=== PATIENT | female | born 1960 | race American Indian/Alaskan Native ===

== ENCOUNTER 2020-03-03 23:12 | Observation (INO) | payer MEDICAID ==
--- NOTE | 2020-03-03 23:37 | Emergency Department Report ---
ED General Adult HPI - General Chief complaint: Weakness Stated complaint: MISSED DIALYSIS Time Seen by Provider: 03/03/20 23:28 Source: patient, EMS Mode of arrival: Stretcher Limitations: Physical Limitation - History of Present Illness Initial comments: Mrs. Zhu is a 60 yo female with hx of ESRD on HD MWF, hypertension, atrial fibrillation who presents with generalized malaise and body swelling. She missed two sessions of dialysis Thursday and Thursday. On Thursday she had generalized malaise. On Thursday she was unable to get transportation to hemodialysis. She has mild shortness of breath. Hotel Office Manager Dr. Galicia Patient has never been admitted to this hospital. Several hospitals are on diversion. Consequently, patient was transported to [facility] from [place], [place]. Medication: Alprazolam Midodrine Metoprolol -: Gradual, days(s) (4) Location: left, right, upper extremity, lower extremity Quality: aching Consistency: constant Improves with: none Worsens with: none Associated Symptoms: shortness of breath - Related Data Allergies Allergy/AdvReac Type Severity Reaction Status Date / Time Penicillins Allergy Hives Verified 03/04/20 00:58 ED Review of Systems ROS: Stated complaint: MISSED DIALYSIS Other details as noted in HPI Comment: All other systems reviewed and negative Constitutional: malaise. denies: chills, fever Eyes: denies: eye pain, eye discharge, vision change ENT: denies: ear pain, throat pain Respiratory: shortness of breath. denies: cough, wheezing Cardiovascular: denies: chest pain, palpitations Endocrine: no symptoms reported Gastrointestinal: denies: abdominal pain, nausea, diarrhea Genitourinary: denies: urgency, dysuria, discharge Musculoskeletal: denies: back pain, joint swelling, arthralgia Skin: denies: rash, lesions Neurological: denies: headache, weakness, paresthesias Psychiatric: denies: anxiety, depression ED Past Medical Hx - Past Medical History Hx Hypertension: Yes Hx Renal Disease: Yes - Surgical History Past Surgical History?: Yes Additional Surgical History: Left forearm arteriovenous fistula ED Physical Exam - General Limitations: Physical Limitation General appearance: alert, in distress (Mild work of breathing while sitting up at rest) - Head Head exam: Present: atraumatic, normocephalic - Eye Eye exam: Present: scleral icterus. Absent: conjunctival injection - ENT ENT exam: Present: mucous membranes moist - Neck Neck exam: Present: normal inspection - Respiratory Respiratory exam: Present: respiratory distress (Increased respiratory rate, breathless after speaking a few words), decreased breath sounds - Cardiovascular Cardiovascular Exam: Present: regular rate, normal rhythm, normal heart sounds. Absent: rubs, gallop - GI/Abdominal GI/Abdominal exam: Present: soft. Absent: distended, tenderness, guarding, rebound - Extremities Exam Extremities exam: Present: other (Lower extremity pitting edema) - Neurological Exam Neurological exam: Present: alert, oriented X3 - Psychiatric Psychiatric exam: Present: normal affect, normal mood - Skin Skin exam: Present: warm, dry, intact, normal color, other (Left forearm: AV fistula positive thrill positive bruit). Absent: rash ED Course Vital Signs 03/03/20 23:27 Temperature 98 F Pulse Rate 92 H Respiratory 18 Rate Blood Pressure 109/64 [Left] O2 Sat by Pulse 98 Oximetry ED Medical Decision Making - Lab Data Result diagrams: 03/03/20 23:46 03/03/20 23:46 - EKG Data 03/04/20 00:11 EKG obtained 2339 Normal sinus rhythm rate 90 bpm abnormal axis widened QRS increased amplitude T waves prolonged QTC no ST elevation - Radiology Data Radiology results: report reviewed CHEST 1 VIEW 11:34 PM INDICATION / CLINICAL INFORMATION: Dyspnea. COMPARISON: None available. FINDINGS: SUPPORT DEVICES: None. HEART / MEDIASTINUM: There is probable dextrocardia. The aortic arch is on the left. LUNGS / PLEURA: There is minimal right basilar subsegmental atelectasis. The left lung is clear. No pneumothorax. ADDITIONAL FINDINGS: Evaluation of the upper abdomen for location of the stomach bubble and liver is the colon. IMPRESSION: Dextrocardia with a left aortic arch. - Medical Decision Making Mrs. Zhu presents with uremic symptoms: volume overload, myalgia, hyperkalemia, respiratoiry distress, elevated BUN/Cr Dr. Coffman trip motor operator will consult and arrange urgent dialysis in AM admitted to [facility] service telemetry Critical care attestation.: If time is entered above; I have spent that time in minutes in the direct care of this critically ill patient, excluding procedure time. ED Disposition Clinical Impression: Hypervolemia, Hyperkalemia, Uremic syndrome, End-stage renal disease on hemodialysis Disposition: DC-09 OP ADMIT IP TO THIS HOSP Is pt being admited?: Yes Does the pt Need Aspirin: No Condition: Stable
[2020-03-04 00:08] LABS: Basophils # (Auto) 0.1 K/mm3 (0.0-0.1); Basophils % (Auto) 1.4 % (0.0-1.8); Eosinophils # (Auto) 0.2 K/mm3 (0.0-0.4); Eosinophils % (Auto) 5.6 % (0.0-4.3); Hematocrit 36.4 % (30.3-42.9); Hemoglobin 11.9 gm/dl (10.1-14.3); Lymphocytes # (Auto) 0.8 K/mm3 (1.2-5.4); Lymphocytes % (Auto) 22.7 % (13.4-35.0); Mean Corpuscular HGB Conc 33 % (30-34); Mean Corpuscular Volume 88 fl (79-97); Monocytes # (Auto) 0.5 K/mm3 (0.0-0.8); Monocytes % (Auto) 15.3 % (0.0-7.3); Red Blood Count 4.12 M/mm3 (3.65-5.03); Red Cell Distribution Width 15.9 % (13.2-15.2)
[2020-03-04 00:09] LABS: Platelet Count 73 K/mm3 (140-440)
[2020-03-04 00:16] LABS: Calcium 8.6 mg/dL (8.4-10.2)
--- NOTE | 2020-03-04 00:19 | XRay Report ---
CHEST 1 VIEW 11:34 PM INDICATION / CLINICAL INFORMATION: Dyspnea. COMPARISON: None available. FINDINGS: SUPPORT DEVICES: None. HEART / MEDIASTINUM: There is probable dextrocardia. The aortic arch is on the left. LUNGS / PLEURA: There is minimal right basilar subsegmental atelectasis. The left lung is clear. No p neumothorax. ADDITIONAL FINDINGS: Evaluation of the upper abdomen for location of the stomach bubble and liver is the colon. IMPRESSION: Dextrocardia with a left aortic arch. Signer Name: Luis Enrique Mcgovern MD Signed: 03/04/2020 12:15 AM Workstation Name: [id number][id number]
[2020-03-04] MEDS ORDERED: oxyCODONE /ACETAMINOPHEN 5-325MG TAB PO ONE (00:33)
[2020-03-04] MEDS ORDERED: oxyCODONE /ACETAMINOPHEN 5-325MG TAB ONE (00:37)
[2020-03-04] MEDS ORDERED: SODIUM POLYSTYRENE 15 GM/60 ML ORAL LIQD PO ONE (00:43)
[2020-03-04] MEDS ORDERED: SODIUM BICARB 8.4% 50 MEQ/50 ML SYRINGE IV ONE (00:43)
[2020-03-04] MEDS ORDERED: SODIUM CHLORIDE 0.9% 100 ML IV PRN ×2 (01:42→11:31)
[2020-03-04] MEDS ORDERED: MAGNESIUM HYDROXIDE (MOM) ORAL LIQD UDC PO PRN (02:49)
[2020-03-04] MEDS ORDERED: ACETAMINOPHEN 325 MG TAB PO PRN (02:49)
[2020-03-04] MEDS ORDERED: ONDANSETRON 4 MG/2 ML INJ IV PRN (02:49)
--- NOTE | 2020-03-04 02:56 | History and Physical Report ---
History of Present Illness Date of examination: 03/04/20 Date of admission: 03/04/2020 Chief complaint: Shortness of breath History of present illness: 60-year-old female with known history of end-stage renal disease on dialysis on Mondays, Wednesdays and Fridays, history of hypertension, atrial fibrillation, presenting to the emergency room today complaining of generalized malaise. She also indicates he has been having progressive swelling of her lower extremities. She admits that she has missed her dialysis on Thursday and Thursday due to generalized malaise and transportation issues. Patient has been having some shortness of breath. She denies any chest pain, no fever or chills, no nausea vomiting, no diarrhea, no headache or dizziness. She denies any recent travel and no sick contacts. She was brought into the [facility] today because several hospitals were on diversion. She has never been admitted into this facility. Work-up in the emergency room reveals hyperkalemia of 5.4. Foreclosure Paralegal Dr. Ceron has been notified by the ER physician for possible dialysis. Past History Past Medical History: ESRD (On dialysis -Mondays, Wednesdays and Fridays), hypertension Past Surgical History: Other (Left AV fistula placement) Social history: no significant social history Family history: no significant family history Medications and Allergies Allergies Allergy/AdvReac Type Severity Reaction Status Date / Time Penicillins Allergy Hives Verified 03/04/20 00:58 Home Medications Medication Instructions Recorded Confirmed Last Taken Type Metoprolol Tartrate 12.5 mg PO BID 03/04/20 03/04/20 Unknown History Midodrine 5 mg PO TID 03/04/20 03/04/20 Unknown History Renvela 1 tab PO TIDAC 03/04/20 03/04/20 Unknown History Xanax TAB 0.5 mg PO BID PRN 03/04/20 03/04/20 Unknown History Active Meds: Active Medications Acetaminophen (Tylenol) 650 mg PO Q4H PRN PRN Reason: Pain MILD(1-3)/Fever >100.5/SOLER Heparin Sodium (Porcine) (Heparin) 5,000 unit SUB-Q Q8HR SUDEEP Sodium Chloride (Nacl 0.9%) 100 mls @ 999 mls/hr IV REID PRN PRN Reason: Hypotension Magnesium Hydroxide (Milk Of Magnesia) 30 ml PO Q4H PRN PRN Reason: Constipation Morphine Sulfate (Morphine) 2 mg IV Q4H PRN PRN Reason: Pain, Moderate (4-6) Ondansetron HCl (Zofran) 4 mg IV Q8H PRN PRN Reason: Nausea And Vomiting Sodium Chloride (Sodium Chloride Flush Syringe 10 Ml) 10 ml IV BID SUDEEP Sodium Chloride (Sodium Chloride Flush Syringe 10 Ml) 10 ml IV PRN PRN PRN Reason: LINE FLUSH Review of Systems Constitutional: no fever, no chills Ears, nose, mouth and throat: no nasal congestion, no sore throat Cardiovascular: no chest pain, no palpitations Respiratory: shortness of breath, no cough Gastrointestinal: no abdominal pain, no nausea, no vomiting, no diarrhea Genitourinary Female: no pelvic pain, no flank pain, no dysuria Musculoskeletal: no neck pain, no low back pain Integumentary: no rash, no pruritis Neurological: no headaches, no confusion Psychiatric: no anxiety, no depression Exam - Constitutional Vitals: Temp Pulse Resp BP Pulse Ox 98 F 80 15 110/63 97 03/03/20 23:27 03/04/20 02:48 03/04/20 02:48 03/04/20 02:48 03/04/20 02:48 General appearance: Present: no acute distress, well-nourished - EENT Eyes: Present: PERRL, EOM intact. Absent: scleral icterus ENT: hearing intact, clear oral mucosa, dentition normal - Neck Neck: Present: supple, normal ROM - Respiratory Respiratory effort: normal Respiratory: bilateral: CTA - Cardiovascular Rhythm: regular Heart Sounds: Present: S1 & S2, systolic murmur. Absent: gallop, rub - Extremities Extremities: no ischemia, pulses intact, pulses symmetrical, Full ROM Extremity abnormal: edema (1+ bilateral lower extremity edema) Peripheral Pulses: within normal limits - Abdominal General gastrointestinal: Present: soft, non-tender, distended, normal bowel sounds. Absent: mass - Integumentary Integumentary: Present: clear, warm, dry - Musculoskeletal Musculoskeletal: strength equal bilaterally - Psychiatric Psychiatric: appropriate mood/affect, intact judgment & insight, memory intact, cooperative - Neurologic Neurologic: CNII-XII intact, no focal deficits, moves all extremities Results - Labs CBC & Chem 7: 03/03/20 23:46 03/03/20 23:46 Labs: Abnormal lab results 03/03/20 03/03/20 Range/Units 23:46 23:46 WBC 3.5 L (4.5-11.0) K/mm3 RDW 15.9 H (13.2-15.2) % Plt Count 73 L (140-440) K/mm3 [place] % (Auto) 15.3 H (0.0-7.3) % Eos % (Auto) 5.6 H (0.0-4.3) % Lymph # 0.8 L (1.2-5.4) K/mm3 Potassium 5.4 H (3.6-5.0) mmol/L Chloride 97.0 L (98-107) mmol/L Carbon Dioxide 21 L (22-30) mmol/L BUN 90 H (7-17) mg/dL Creatinine 10.8 H (0.7-1.2) mg/dL Glucose 102 H (65-100) mg/dL Assessment and Plan - Patient Problems (1) End-stage renal disease on hemodialysis Current Visit: Yes Status: Acute Plan to address problem: Consult has been placed to the radio interference trouble shooter for possible dialysis this a.m. Dr. Ceron has been notified by the ER physician. Patient has a private radio interference trouble shooter Dr. Lazaro. (2) Hyperkalemia Current Visit: Yes Status: Acute Plan to address problem: He has had some Kayexalate in the emergency room. Will monitor potassium levels. (3) DVT prophylaxis Current Visit: Yes Status: Acute Plan to address problem: Patient placed on subcutaneous heparin. (4) Full code status Current Visit: Yes Status: Acute
[2020-03-04] MEDS: HEPARIN 5,000 UNIT/1 ML VIAL SUB-Q SCH ×4 (06:41→22:05)
[2020-03-04] MEDS ORDERED: ALPRAZolam 0.5 MG TAB PO PRN (06:58)
--- NOTE | 2020-03-04 09:50 | Event Note ---
Date: 03/04/20 Patient seen and examined This is the second IMS visit of the day Patient is alert and oriented Not in any distress States her last hemodialysis was on Thursday Also she states that she is nonambulatory for the past 6 months since she had surgery on her right femur She is requesting physical therapy evaluation She has history of atrial fibrillation but was taken off oral anticoagulant earlier this year after being treated for 2 to 3 months She cannot give any further details Awaiting nephrology evaluation for possible hemodialysis today She is otherwise medically stable Monitor labs
[2020-03-04] MEDS: SEVELAMER CARBONATE 800 MG TAB PO SCH ×3 (10:00→17:01)
[2020-03-04] MEDS: METOPROLOL TARTRATE 25 MG TAB PO SCH ×2 (10:00→21:53)
[2020-03-04] MEDS: MIDODRINE 5 MG TAB PO SCH ×3 (10:00→21:30)
[2020-03-04] MEDS ORDERED: diphenhydrAMINE 50 MG/ML VIAL IV PRN (11:31)
--- NOTE | 2020-03-04 12:41 | Consultation ---
History of Present Illness - Reason for Consult Consult date: 03/04/20 end stage renal disease, hyperkalemia Requesting physician: DANIELITO SANTOS - History of Present Illness This is a 60 yo AAF with past medical history of hypertension, atrial fibrillation, ESRD on MWF schedule, who presents to ER with complaints for generalized malaise, weakness, swelling, OH. Pt states that she missed HD since last treatment on Thursday due to transport issues. Labs in ER showed elevated BUN/cr at 90/10.8mg/dl along with hyperkalemia (K 5,4), renal consult is requested for management of ESRD/HD. Past History Past Medical History: ESRD (On dialysis -Mondays, Wednesdays and Fridays), hypertension Past Surgical History: Other (Left AV fistula placement) Social history: no significant social history Family history: no significant family history Medications and Allergies Allergies Allergy/AdvReac Type Severity Reaction Status Date / Time Penicillins Allergy Hives Verified 03/04/20 00:58 Home Medications Medication Instructions Recorded Confirmed Last Taken Type Metoprolol Tartrate 12.5 mg PO BID 03/04/20 03/04/20 Unknown History Midodrine 5 mg PO TID 03/04/20 03/04/20 Unknown History Renvela 1 tab PO TIDAC 03/04/20 03/04/20 Unknown History Xanax TAB 0.5 mg PO BID PRN 03/04/20 03/04/20 Unknown History Active Meds: Active Medications Acetaminophen (Tylenol) 650 mg PO Q4H PRN PRN Reason: Pain MILD(1-3)/Fever >100.5/SOLER Alprazolam (Xanax) 0.5 mg PO BID PRN PRN Reason: Anxiety Heparin Sodium (Porcine) (Heparin) 5,000 unit SUB-Q Q8HR [facility] Last Admin: 03/04/20 06:41 Dose: Not Given Documented by: Sodium Chloride (Nacl 0.9%) 100 mls @ 999 mls/hr IV REID PRN PRN Reason: Hypotension Sodium Chloride (Nacl 0.9%) 100 mls @ 999 mls/hr IV REID PRN PRN Reason: Hypotension Magnesium Hydroxide (Milk Of Magnesia) 30 ml PO Q4H PRN PRN Reason: Constipation Metoprolol Tartrate (Metoprolol) 12.5 mg PO BID [facility] Last Admin: 03/04/20 10:00 Dose: 12.5 mg Documented by: Midodrine (Proamatine) 5 mg PO TID [facility] Last Admin: 03/04/20 10:00 Dose: 5 mg Documented by: Morphine Sulfate (Morphine) 2 mg IV Q4H PRN PRN Reason: Pain, Moderate (4-6) Ondansetron HCl (Zofran) 4 mg IV Q8H PRN PRN Reason: Nausea And Vomiting Sevelamer Carbonate (Renvela) 800 mg PO TIDAC [facility] Last Admin: 03/04/20 12:09 Dose: Not Given Documented by: Sodium Chloride (Sodium Chloride Flush Syringe 10 Ml) 10 ml IV BID [facility] Last Admin: 03/04/20 10:00 Dose: 10 ml Documented by: Sodium Chloride (Sodium Chloride Flush Syringe 10 Ml) 10 ml IV PRN PRN PRN Reason: LINE FLUSH Review of Systems Constitutional: fatigue, weakness, malaise Cardiovascular: edema, shortness of breath Exam - Vital Signs Vital signs: Vital Signs Temp Pulse Resp BP Pulse Ox 98 F 92 H 18 109/64 98 03/03/20 23:27 03/03/20 23:27 03/03/20 23:27 03/03/20 23:27 03/03/20 23:27 - General Appearance General appearance: well-developed, well-nourished, appears stated age EENT: ATNC, PERRL, mucous membranes moist Neck: Present: neck supple Respiratory: Decreased Breath Sounds Heart: regular, S1S2 Gastrointestinal: Present: normoactive bowel sounds Integumentary: no rash, other (trace edema ) Neurologic: no focal deficit, alert and oriented x3, strength 5/5, CN 3-12 intact Psychiatric: mood/affect appropriate, cooperative Results - Lab Results 03/03/20 23:46 03/03/20 23:46 Most recent lab results Calcium 8.6 mg/dL (8.4-10.2) 03/03/20 23:46 Assessment and Plan - Patient Problems (1) End-stage renal disease on hemodialysis Current Visit: Yes Status: Acute Plan to address problem: arranged HD today for correction of hyperkalemia, solute clearance and volume c ontrol. Cont HD MWF schedule (2) Hypertensive chronic kidney disease with stage 5 chronic kidney disease or end stage renal disease Current Visit: Yes Status: Acute Plan to address problem: BP controlled, monitor on current meds (3) Hyperkalemia Current Visit: Yes Status: Acute Plan to address problem: HD with 2K bath, cont 2g K renal diet. (4) Uremic syndrome Current Visit: Yes Status: Acute Plan to address problem: subtle uremic symptoms, expect to improve with HD
[2020-03-04 13:07] LABS: Hepatitis C Virus Antibody Non-Reactive (NonReactive)
[2020-03-04 14:49] LABS: Hepatitis B Surface Antigen Non-Reactive (Negative)
[2020-03-04] MEDS: MORPHINE 2 MG/1 ML INJ IV PRN ×2 (17:02→21:54)
[2020-03-05] MEDS: MORPHINE 2 MG/1 ML INJ IV PRN ×3 (03:51→15:42)
[2020-03-05 06:17] LABS: Basophils % (Auto) 1.2 % (0.0-1.8); Eosinophils # (Auto) 0.2 K/mm3 (0.0-0.4); Eosinophils % (Auto) 4.4 % (0.0-4.3); Hematocrit 37.2 % (30.3-42.9); Lymphocytes # (Auto) 0.8 K/mm3 (1.2-5.4); Lymphocytes % (Auto) 22.4 % (13.4-35.0); Mean Corpuscular HGB Conc 32 % (30-34); Mean Corpuscular Volume 88 fl (79-97); Monocytes # (Auto) 0.5 K/mm3 (0.0-0.8); Platelet Count 68 K/mm3 (140-440); Red Blood Count 4.22 M/mm3 (3.65-5.03); Red Cell Distribution Width 16.3 % (13.2-15.2)
[2020-03-05 06:27] LABS: INR 1.31 (0.87-1.13)
[2020-03-05] MEDS: HEPARIN 5,000 UNIT/1 ML VIAL SUB-Q SCH ×2 (06:55→15:41)
[2020-03-05] MEDS: SEVELAMER CARBONATE 800 MG TAB PO SCH ×3 (08:00→15:42)
[2020-03-05] MEDS ORDERED: SODIUM CHLORIDE 0.9% 100 ML IV PRN (08:06)
[2020-03-05] MEDS: MIDODRINE 5 MG TAB PO SCH ×2 (08:40→15:42)
--- NOTE | 2020-03-05 11:44 | Discharge Summary ---
Providers - Providers Date of Admission: 03/04/20 02:54 Date of discharge: 03/05/20 Attending physician: MIGUEL CHILDRESS 03/04/20 01:16 Consult to Physician [CONS] Stat Comment: Dr. Baker spoke with Dr. Charles @ 0115 Consulting Provider: NAHOMY CHARLES Physician Instructions: Reason For Exam: esrd, uremia 03/04/20 09:43 Physical Therapy Evaluation and Treat [CONS] Routine Comment: Reason For Exam: non ambulatory Hospitalization Condition: Stable Hospital course: 60-year-old female with known history of end-stage renal disease on dialysis on Mondays, Wednesdays and Fridays, history of hypertension, atrial fibrillation, presenting to the emergency room complaining of generalized malaise, swelling, OH. Work-up in the emergency room reveals hyperkalemia of 5.4. Blasting Worker Dr. Ceron was consulted for possible dialysis. Patient was dialyzed, potassium was followed. Her symptom improved following dialysis and patient was then discharged home in stable condition with outpatient follow-up. Chest x-ray: Dextrocardia with left aortic arch Discharge Diagnosis: End-stage renal disease on hemodialysis Volume overload, counseled for fluid restriction Hyperkalemia due to end-stage renal disease Chronic hypotension, continue midodrine h/o Atrial fibrillation, not on chronic anticoagulation Disposition: TO HOME OR SELFCARE Time spent for discharge: 34 minutes Core Measure Documentation - Palliative Care Palliative Care/ Comfort Measures: Not Applicable - Core Measures Any of the following diagnoses?: none Exam - Physical Exam Narrative exam: General appearance: well-developed, well-nourished, appears stated age EENT: ATNC, PERRL, mucous membranes moist Neck: Present: neck supple Respiratory: Decreased Breath Sounds Heart: regular, S1S2 Gastrointestinal: Present: normoactive bowel sounds Integumentary: no rash, other (trace edema ) Neurologic: no focal deficit, alert and oriented x3, strength 5/5, CN 3-12 intact Psychiatric: mood/affect appropriate, cooperative - Constitutional Vitals: Temp Pulse Resp BP Pulse Ox 98.8 F 75 18 110/71 98 03/05/20 03:52 03/05/20 10:48 03/05/20 10:48 03/05/20 03:52 03/05/20 10:48 Plan Activity: advance as tolerated Weight Bearing Status: Weight Bear as Tolerated Diet: renal Special Instructions: restrict fluid intake to (1.2 L daily) Follow up with: DANIEL EDDY MD [Other] - 7 Days
[2020-03-05] MEDS: METOPROLOL TARTRATE 25 MG TAB PO SCH (12:04)
[2020-03-05 23:28] VITALS: BP 119/62
== END 2020-03-05 23:55 | disposition home or self-care (01) ==
LOC: ED 23:12 → 4A 03-04 02:54
PROVIDERS: ADMIT Internal Medicine Geriatric Medicine; ATTEND Internal Medicine
DX: I12.0 Hypertensive chronic kidney disease with stage 5 chronic kidney disease or end stage renal disease (principal); N18.6 End stage renal disease; E87.5 Hyperkalemia; I48.91 Unspecified atrial fibrillation; E86.1 Hypovolemia; Z91.15 Patient's noncompliance with renal dialysis; Z99.2 Dependence on renal dialysis; Z79.899 Other long term (current) drug therapy; Z79.01 Long term (current) use of anticoagulants; Z88.0 Allergy status to penicillin
CPT/HCPCS: 36415; 71045; 80048; 80074; 85025; 85610; 93005; 96372; 96374; 96375; 96376; 99285; G0257; G0378; J1200; J1644; J2270

== ENCOUNTER 2020-03-15 21:08 | Observation (INO) | payer MEDICAID ==
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
[2020-03-15] MEDS ORDERED: ACETAMINOPHEN 325 MG TAB PO ONE (22:11)
[2020-03-15 22:18] LABS: Calcium 9.5 mg/dL (8.4-10.2)
[2020-03-15] MEDS ORDERED: INSULIN REGULAR, HUMAN 100 UNITS/1 ML IV ONE (22:45)
[2020-03-15] MEDS ORDERED: ALBUTEROL 2.5 MG/3 ML NEBU IH ONE (22:45)
[2020-03-15] MEDS ORDERED: DEXTROSE 50% IN WATER (25GM) 50 ML VIAL IV PRN (22:45)
[2020-03-15] MEDS ORDERED: SODIUM BICARB 8.4% 50 MEQ/50 ML SYRINGE IV ONE (22:45)
[2020-03-15] MEDS ORDERED: SODIUM POLYSTYRENE 15 GM/60 ML ORAL LIQD PO ONE (22:45)
[2020-03-15] MEDS ORDERED: CALCIUM GLUCONATE 1,000 MG in SODIUM CHLORIDE 0.9% 100 ML IV ONE (22:57)
--- NOTE | 2020-03-15 23:05 | Cat Scan Report ---
CT HEAD WITHOUT CONTRAST INDICATION / CLINICAL INFORMATION: Sheryl.Don., now with headache, weakness and dizziness. TECHNIQUE: All CT scans at this location are performed using CT dose reduction for ALARA by means of automated e xposure control. COMPARISON: None available. FINDINGS: HEMORRHAGE: None. EXTRA-AXIAL SPACES: Normal in size and morphology for the patient's age. VENTRICULAR SYSTEM: Normal in size and morphology for the patient's age. CEREBRAL PARENCHYMA: Extensive diffuse periventricular and deep white matter hypoattenuation characte ristic for microangiopathy No significant abnormality. No acute territorial infarct. MIDLINE SHIFT OR HERNIATION: None. CEREBELLUM / BRAINSTEM: No significant abnormality. ORBITS: Normal as visualized. SOFT TISSUES of HEAD: No significant abnormality. CALVARIUM: No significant abnormality. PARANASAL SINUSES / MASTOID AIR CELLS: Normal as visualized. ADDITIONAL FINDINGS: Extensive vascular calcifications both cavernous carotid and vertebral arteries IMPRESSION: 1. No acute intracranial abnormality. 2. Extensive microangiopathy Signer Name: Rajesh Marrero MD Signed: 03/15/2020 11:01 PM Workstation Name: [id number]
--- NOTE | 2020-03-15 23:14 | Cat Scan Report ---
CT CERVICAL SPINE WITHOUT CONTRAST INDICATION: M.V.C., now with neck pain.. TECHNIQUE: All CT scans at this location are performed using CT dose reduction for ALARA by means of automated e xposure control. Axial CT images were obtained through the cervical spine. Sagittal and coronal reformatted images we re produced. COMPARISON: None available. FINDINGS: Fracture: None. Subluxation: None. Spinal canal: No significant compromise. Disc spaces: Mild discogenic degenerative disease C3-4 C7-T1. Facet joints: Normal. Paraspinal soft tissues: No soft tissue swelling. Normal. Additional findings: Moderate sized bilateral cervical ribs cervical ribs extensive vascular calcific ations throughout both carotid and vertebral arteries likely secondary to diabetes. Bilateral retroph aryngeal common carotid arteries Lung apices: Normal. IMPRESSION: 1. No acute findings. Signer Name: Rajesh Marrero MD Signed: 03/15/2020 11:10 PM Workstation Name: [id number]
[2020-03-15] MEDS ORDERED: DEXTROSE 50% IN WATER (25GM) 50 ML SYRINGE IV ONE (23:23)
[2020-03-15 23:30] LABS: Hematocrit 36.8 % (30.3-42.9); Hemoglobin 11.8 gm/dl (10.1-14.3); Mean Corpuscular HGB Conc 32 % (30-34); Mean Corpuscular Volume 87 fl (79-97); Red Blood Count 4.22 M/mm3 (3.65-5.03); Red Cell Distribution Width 16.3 % (13.2-15.2)
[2020-03-15 23:38] LABS: INR 1.39 (0.87-1.13)
[2020-03-15 23:41] LABS: Platelet Count 76 K/mm3 (140-440)
[2020-03-16] MEDS ORDERED: ACETAMINOPHEN 325 MG TAB PO PRN (00:47)
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
--- NOTE | 2020-03-16 00:53 | XRay Report ---
LUMBAR SPINE 2 AP VIEWS INDICATION / CLINICAL INFORMATION: back pain. COMPARISON: None available. FINDINGS: No lateral view could be performed secondary to patient immobility VERTEBRAE: No fracture. No significant malalignment. DISC SPACES:No significant abnormality. FACET JOINTS:No significant abnormality. ADDITIONAL FINDINGS: Osteopenia, IVC filter IMPRESSION: 1. No significant abnormality. Signer Name: Rajesh Marrero MD Signed: 03/16/2020 12:48 AM Workstation Name: [id number]
--- NOTE | 2020-03-16 00:54 | XRay Report ---
CHEST 1 VIEW 03/15/2020 11:40 PM INDICATION / CLINICAL INFORMATION: acute dyspnea. COMPARISON: 03/03/2020 FINDINGS: SUPPORT DEVICES: None. HEART / MEDIASTINUM: Dextrocardia with marked cardiomegaly is again noted LUNGS / PLEURA: Mild interstitial prominence and small right pleural effusion No pneumothorax. ADDITIONAL FINDINGS: No significant additional findings. IMPRESSION: 1. Mild CHF 2. Dextrocardia Signer Name: Rajesh Marrero MD Signed: 03/16/2020 12:50 AM Workstation Name: [id number]
[2020-03-16 01:10] LABS: Chol/HDL Ratio 2.41 %
[2020-03-16 02:27] LABS: Calcium 9.5 mg/dL (8.4-10.2)
[2020-03-16] MEDS ORDERED: HEPARIN 5,000 UNIT/1 ML VIAL ONE (02:51)
[2020-03-16] MEDS: HEPARIN 5,000 UNIT/1 ML VIAL SUB-Q SCH ×2 (02:51→16:15)
[2020-03-16] MEDS ORDERED: SODIUM CHLORIDE 0.9% 250ML 250 ML IV ONE (05:29)
[2020-03-16] MEDS ORDERED: SODIUM CHLORIDE 0.9% 250ML 250 ML ONE (05:31)
[2020-03-16 06:43] LABS: Creatine Kinase MB 3.2 ng/mL (0.0-4.0)
--- NOTE | 2020-03-16 07:44 | History and Physical Report ---
History of Present Illness Date of examination: 03/15/20 Date of admission: 03/15/20 23:55 Chief complaint: weakness History of present illness: Patient is a 60-year-old female who presented to the emergency room with complaint of weakness going on for a few days and associated with body aches. Patient says she missed 2 sessions of dialysis because of weakness and also complains of low back pain, cough but no history of fever or chills and also there is no history of chest pain Past History Past Medical History: atrial fib, diabetes, hypertension, renal failure Past Surgical History: cholecystectomy, Other (Left arm A-V fistular) Social history: no significant social history Family history: no significant family history Medications and Allergies Allergies Allergy/AdvReac Type Severity Reaction Status Date / Time Penicillins Allergy Hives Verified 03/04/20 00:58 Home Medications Medication Instructions Recorded Confirmed Last Taken Type Metoprolol Tartrate 12.5 mg PO BID 03/04/20 03/04/20 Unknown History Midodrine 5 mg PO TID 03/04/20 03/04/20 Unknown History Renvela 1 tab PO TIDAC 03/04/20 03/04/20 Unknown History Xanax TAB 0.5 mg PO BID PRN 03/04/20 03/04/20 Unknown History Active Meds: Active Medications Acetaminophen (Tylenol) 650 mg PO Q4H PRN PRN Reason: Headache Dextrose (D50w (25gm) Vial) 50 gm IV Q30MIN PRN; Protocol PRN Reason: Hypoglycemia Last Admin: 03/15/20 23:27 Dose: 50 gm Documented by: Heparin Sodium (Porcine) (Heparin) 5,000 unit SUB-Q Q12HR SUDEEP Last Admin: 03/16/20 02:51 Dose: 5,000 unit Documented by: Morphine Sulfate (Morphine) 2 mg IV Q3H PRN PRN Reason: Pain, Moderate (4-6) Ondansetron HCl (Zofran) 4 mg IV Q8H PRN PRN Reason: Nausea And Vomiting Review of Systems Constitutional: weakness, no weight loss, no weight gain, no fever, no chills, no sweats, no anorexia, no fatigue, no malaise, no lethargy Eyes: bilateral: other (No Bilateral eye symptom) Ears, nose, mouth and throat: no deferred, no ear pain, no nose pain, no dental pain, no mouth pain, no dysphagia, no hoarseness, no sore throat, no swelling in mouth, no headache, no vertigo Breasts: deferred Cardiovascular: no chest pain, no orthopnea, no palpitations, no rapid/irregular heart beat, no syncope, no lightheadedness, no dyspnea on exertion Respiratory: no cough, no hemoptysis, no congestion, no wheezing, no pleurisy, no pain Gastrointestinal: no abdominal pain, no nausea, no vomiting, no diarrhea, no constipation, no change in bowel habits, no melena, no hematochezia, no loss of appetite, no early satiety, no jaundice, no dyspepsia/bloating Genitourinary Female: no dyspareunia, no dysmenorrhea, no pelvic pain, no flank pain, no menorrhagia, no dysuria, no urinary frequency, no post void dribbling, no hot flashes Rectal: no pain, no itching Musculoskeletal: low back pain, no neck stiffness, no neck pain, no shooting arm pain, no arm numbness/tingling, no morning stiffness, no muscle cramps, no myalgias Integumentary: no rash, no pruritis, no redness, no sores, no wounds, no jaundice, no boils, no blisters, no bullae, no lesions, no darkening of skin, no depigmentation, no acne, no dryness Neurological: no paralysis, no weakness, no parathesias, no numbness, no tingling, no seizures, no syncope, no tremors, no ataxia, no vertigo, no headaches, no migraines, no convulsions, no aphasia, no change in speech, no change in mentation, no confusion, no double vision, no loss of vision Psychiatric: no anxiety, no memory loss, no change in sleep habits, no sleep disturbances, no insomnia, no hypersomnia, no change in appetite, no change in libido, no depression, no hopelessness, no anhedonia, no anxiety attacks Endocrine: no cold intolerance, no heat intolerance, no polyphagia, no excessive thirst, no polydipsia, no polyuria, no nocturia, no excessive sweating, no thyroid mass, no palpatations, no high blood sugars, no low blood sugars Hematologic/Lymphatic: no easy bruising, no easy bleeding, no lymphadenopathy, no lymphedema Exam - Constitutional Vitals: Temp Pulse Resp BP Pulse Ox 97.7 F 105 H 19 102/72 93 03/15/20 21:15 03/16/20 06:30 03/16/20 06:30 03/16/20 06:30 03/16/20 06:30 General appearance: Present: mild distress - EENT Eyes: Present: PERRL, EOM intact ENT: hearing intact, clear oral mucosa - Neck Neck: Present: supple, normal ROM - Respiratory Respiratory effort: normal - Cardiovascular Rhythm: regular Heart Sounds: Present: S1 & S2. Absent: systolic murmur, diastolic murmur - Extremities Extremities: no ischemia, No edema Peripheral Pulses: within normal limits - Abdominal General gastrointestinal: Present: soft, non-tender, non-distended. Absent: tender, distended, rigid, hepatomegaly, splenomegaly, hernia Female genitourinary: Present: deferred - Rectal Rectal Exam: deferred - Integumentary Integumentary: Present: clear, warm, dry. Absent: jaundice, rash, clammy - Musculoskeletal Musculoskeletal: strength equal bilaterally - Psychiatric Psychiatric: appropriate mood/affect - Neurologic Neurologic: CNII-XII intact HEART Score - HEART Score Troponin: Troponin T 0.280 ng/mL (0.00-0.029) H* 03/16/20 05:58 Results - Labs CBC & Chem 7: 03/15/20 23:09 03/16/20 01:58 Labs: Laboratory Last Values WBC 4.7 K/mm3 (4.5-11.0) 03/15/20 23:09 RBC 4.22 M/mm3 (3.65-5.03) 03/15/20 23:09 Hgb 11.8 gm/dl (10.1-14.3) 03/15/20 23:09 Hct 36.8 % (30.3-42.9) 03/15/20 23:09 MCV 87 fl (79-97) 03/15/20 23:09 MCH 28 pg (28-32) 03/15/20 23:09 MCHC 32 % (30-34) 03/15/20 23:09 RDW 16.3 % (13.2-15.2) H 03/15/20 23:09 Plt Count 76 K/mm3 (140-440) L 03/15/20 23:09 PT 17.2 Sec. (12.2-14.9) H 03/15/20 23:09 INR 1.39 (0.87-1.13) H 03/15/20 23:09 Sodium 136 mmol/L (137-145) L 03/16/20 01:58 Potassium 5.4 mmol/L (3.6-5.0) H 03/16/20 01:58 Chloride 97.3 mmol/L (98-107) L 03/16/20 01:58 Carbon Dioxide 17 mmol/L (22-30) L 03/16/20 01:58 Anion Gap 27 mmol/L 03/16/20 01:58 BUN 95 mg/dL (7-17) H 03/16/20 01:58 Creatinine 12.3 mg/dL (0.7-1.2) H 03/16/20 01:58 Estimated GFR 4 ml/min 03/16/20 01:58 BUN/Creatinine Ratio 8 % 03/16/20 01:58 Glucose 60 mg/dL (65-100) L 03/16/20 01:58 Calcium 9.5 mg/dL (8.4-10.2) 03/16/20 01:58 Magnesium 2.60 mg/dL (1.7-2.3) H 03/15/20 23:09 Total Creatine Kinase 29 units/L (30-135) L 03/16/20 05:58 CK-MB (CK-2) 3.2 ng/mL (0.0-4.0) 03/16/20 05:58 CK-MB (CK-2) Rel Index 11.0 (0-4) H 03/16/20 05:58 Troponin T 0.280 ng/mL (0.00-0.029) H* 03/16/20 05:58 Triglycerides 88 mg/dL (2-149) 03/15/20 23:09 Cholesterol 87 mg/dL (50-199) 03/15/20 23:09 LDL Cholesterol Direct 35 mg/dL (50-130) L 03/15/20 23:09 HDL Cholesterol 36 mg/dL (40-59) L 03/15/20 23:09 Cholesterol/HDL Ratio 2.41 % 03/15/20 23:09 Chapman/IV: IV Catheter Type [Right Wrist] INT / Saline Lock IV Catheter Type [Left Forearm INT / Saline Lock ] Assessment and Plan - Patient Problems (1) Hyperkalemia Current Visit: Yes Status: Acute Plan to address problem: 1. I.V Calcium chloride, 2. I.V Insulin and I.v dextrose 3. Albuterol nebulizer (2) Lower back pain Current Visit: Yes Status: Acute Plan to address problem: 1. I.V Morphine for pain (3) End-stage renal disease on hemodialysis Current Visit: No Status: Acute Plan to address problem: Nephrology consult for dialysis
[2020-03-16] MEDS ORDERED: SODIUM CHLORIDE 0.9% 100 ML IV PRN (07:49)
[2020-03-16] MEDS ORDERED: MORPHINE 2 MG/1 ML INJ ONE ×3 (07:55→23:13)
[2020-03-16] MEDS: MORPHINE 2 MG/1 ML INJ IV PRN ×3 (08:00→23:13)
--- NOTE | 2020-03-16 09:52 | Event Note ---
Date: 03/16/20 PT OT CARDIOLOGY CONSULT continue supportive care
--- NOTE | 2020-03-16 10:17 | Consultation ---
History of Present Illness - Reason for Consult Consult date: 03/16/20 end stage renal disease - History of Present Illness patient with ESRD on HD last tx was last week, she was not able to make it to her tx due to worsening weakness and back pain. in the ED she was found to have hyperkalemia and renal consult was requested for ESRD management, STAT HD was ordered and she was seen in dialysis this AM and was tolerating tx well. Past History Past Medical History: atrial fib, diabetes, hypertension, renal failure Past Surgical History: cholecystectomy, Other (Left arm A-V fistular) Social history: no significant social history Family history: no significant family history Medications and Allergies Allergies Allergy/AdvReac Type Severity Reaction Status Date / Time Penicillins Allergy Hives Verified 03/04/20 00:58 Home Medications Medication Instructions Recorded Confirmed Last Taken Type Metoprolol Tartrate 12.5 mg PO BID 03/04/20 03/04/20 Unknown History Midodrine 5 mg PO TID 03/04/20 03/04/20 Unknown History Renvela 1 tab PO TIDAC 03/04/20 03/04/20 Unknown History Xanax TAB 0.5 mg PO BID PRN 03/04/20 03/04/20 Unknown History Active Meds: Active Medications Acetaminophen (Tylenol) 650 mg PO Q4H PRN PRN Reason: Headache Dextrose (D50w (25gm) Vial) 50 gm IV Q30MIN PRN; Protocol PRN Reason: Hypoglycemia Last Admin: 03/15/20 23:27 Dose: 50 gm Documented by: Heparin Sodium (Porcine) (Heparin) 5,000 unit SUB-Q Q12HR SUDEEP Last Admin: 03/16/20 02:51 Dose: 5,000 unit Documented by: Sodium Chloride (Nacl 0.9%) 100 mls @ 999 mls/hr IV REID PRN PRN Reason: Hypotension Morphine Sulfate (Morphine) 2 mg IV Q3H PRN PRN Reason: Pain, Moderate (4-6) Last Admin: 03/16/20 08:00 Dose: 2 mg Documented by: Ondansetron HCl (Zofran) 4 mg IV Q8H PRN PRN Reason: Nausea And Vomiting Review of Systems All systems: negative (weakness) Exam - Vital Signs Vital signs: Vital Signs Temp Pulse Resp BP Pulse Ox 97.7 F 66 17 104/59 97 03/15/20 21:15 03/15/20 21:15 03/15/20 21:15 03/15/20 21:15 03/15/20 21:15 - General Appearance General appearance: well-developed, well-nourished EENT: ATNC, PERRL Neck: Present: neck supple Respiratory: Clear to Ascultation Heart: irregular Gastrointestinal: Present: normoactive bowel sounds. Absent: tenderness, distended Integumentary: no rash, warm and dry Neurologic: no focal deficit, no asterixis, alert and oriented x3 Musculoskeletal: Present: other (trace pitting edema in BLE) Psychiatric: mood/affect appropriate, cooperative Results - Lab Results 03/15/20 23:09 03/16/20 01:58 Most recent lab results Calcium 9.5 mg/dL (8.4-10.2) 03/16/20 01:58 Magnesium 2.60 mg/dL (1.7-2.3) H 03/15/20 23:09 Assessment and Plan ESRD on HD Hyperkalemia Back pain weakness hypotension HD today for clearance and volume removal. ordered again fort tomorrow will assess dialysis needs daily no indication for SHANIA will check phos daily will restart Midodrine 5 mg TID renally dose meds strictg I&O daily weight Cameron Zhou MD [phone]
[2020-03-16 12:49] LABS: BUN/Creatinine Ratio 19; Blood Urea Nitrogen 30 mg/dL (7-17); Calcium 8.8 mg/dL (8.4-10.2); Hemolysis Index 16
[2020-03-16 12:51] LABS: Creatine Kinase MB 4.8 ng/mL (0.0-4.0)
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
[2020-03-16] MEDS: MIDODRINE 2.5 MG TAB PO SCH (16:02)
[2020-03-16 17:46] LABS: Calcium 9.3 mg/dL (8.4-10.2)
[2020-03-16] MEDS ORDERED: ONDANSETRON 4 MG/2 ML INJ ONE (23:13)
[2020-03-16] MEDS: ONDANSETRON 4 MG/2 ML INJ IV PRN (23:13)
[2020-03-17] MEDS: MORPHINE 2 MG/1 ML INJ IV PRN ×3 (04:33→21:54)
[2020-03-17] MEDS: ONDANSETRON 4 MG/2 ML INJ IV PRN (04:35)
[2020-03-17 06:24] LABS: Basophils % (Auto) 1.2 % (0.0-1.8); Eosinophils # (Auto) 0.2 K/mm3 (0.0-0.4); Eosinophils % (Auto) 4.4 % (0.0-4.3); Hematocrit 34.8 % (30.3-42.9); Hemoglobin 11.2 gm/dl (10.1-14.3); Lymphocytes # (Auto) 0.8 K/mm3 (1.2-5.4); Lymphocytes % (Auto) 19.3 % (13.4-35.0); Mean Corpuscular HGB Conc 32 % (30-34); Mean Corpuscular Volume 88 fl (79-97); Monocytes # (Auto) 0.6 K/mm3 (0.0-0.8); Red Blood Count 3.97 M/mm3 (3.65-5.03); Red Cell Distribution Width 16.5 % (13.2-15.2)
[2020-03-17 06:37] LABS: Platelet Count 73 K/mm3 (140-440)
[2020-03-17 06:42] LABS: Calcium 9.2 mg/dL (8.4-10.2)
[2020-03-17 06:49] LABS: Calcium 9.4 mg/dL (8.4-10.2)
[2020-03-17] MEDS: MIDODRINE 2.5 MG TAB PO SCH ×2 (08:55→14:00)
--- NOTE | 2020-03-17 09:28 | Discharge Summary ---
Providers - Providers Date of Admission: 03/15/20 23:55 Attending physician: MIRA STEPHEN MD 03/15/20 22:45 Consult to Physician [CONS] Urgent Comment: Consulting Provider: ISAAC ANNE Physician Instructions: Reason For Exam: ckd hyperkalemia 03/16/20 09:48 Consult to Physician [CONS] Routine Comment: Consulting Provider: BOYD DUARTE Physician Instructions: Reason For Exam: type 2 mi 03/16/20 09:49 Occupational Therapy Evaluate and Treat [CONS] Routine Comment: Reason For Exam: cervical pain Physical Therapy Evaluation and Treat [CONS] Routine Comment: Reason For Exam: deconditioning Primary care physician: DIGITAL ADVISOR Hospitalization Condition: Good Hospital course: Patient is a 60-year-old female with past medical history of atrial fibrillation, diabetes mellitus, hypertension, end-stage renal disease on HD who presented to the emergency room with complaint of weakness going on for a few days and associated with body aches. Patient says she missed 2 sessions of dialysis because of weakness and also complains of low back pain, cough but no history of fever or chills and also there is no history of chest pain Non-specific troponin in the setting of ESRD Cath 10/2019 at [facility] showing normal coronaries Echo 10/2019 - EF 60%, severe RVE, NURYS, mild RVD, moderate MS, , AR, mod to sev TR review of outside records by cards showed, patient was considered for pallative care after being dememend not a candidate for surgery has had extensive cardiac work up was on midodrine 15mg PO TID FOR chronic hypotension but last filled in 01/14 shows 5mg tid patient is also on chronic opoiod therapy last filled 01/14 per our records Patient had extensive cardiac work-up at [facility] in Oct. She was also evaluated by CTS for her valvular heart disease and was deemed not a candidate for surgical intervention due to multiple co morbidities. No further cardiac inpatient work-up is needed Patient may follow-up with her primary forest aide as outpatient Atrial fibrillation with RVR Hyperkalemia End-stage renal disease Chronic low back pain Prior history of GI bleed Dextrocardia Status post IVC filter Chronic hypotension on midodrine 50 mg p.o. 3 times daily Plan Discussed with forest aide. Patient has had extensive cardiac work-up as noted below She states that she has chronic atrial fibrillation and is usually cared for by a forest aide in [facility]. She states that in the past she was variously on Eliquis and warfarin, but both of these were discontinued due to "internal bleeding". In the past 6 months, she also describes a cardiac catheterization procedure, done at [facility], for which she received no coronary intervention or revascularization procedure. Otherwise, she has no clear details of the findings of the cardiac catheterization. Continue hyperkalemia management. DVT and GI prophylaxis Plan to discharge patient today. Disposition: DC-01 TO HOME OR SELFCARE Exam - Constitutional Vitals: Temp Pulse Resp BP Pulse Ox 98.5 F 77 20 111/53 94 03/17/20 07:56 03/17/20 07:56 03/17/20 07:56 03/17/20 07:56 03/17/20 07:56 Plan Activity: advance as tolerated, fall precautions Diet: low fat, low salt Special Instructions: record daily weights, record daily BP diary Follow up with: PRIMARY CAREMD [Primary Care Provider] - 7 Days EZE BELTRAN MD [Staff Physician] - 7 Days ESTEFANY DURAN MD [Staff Physician] - 7 Days Prescriptions: Midodrine 5 mg PO TID #30 Renvela 1 tab PO TIDAC #30 traMADoL [Ultram] 50 mg PO Q6HR PRN #14 tablet PRN Reason: Pain
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
[2020-03-17] MEDS: HEPARIN 5,000 UNIT/1 ML VIAL SUB-Q SCH ×2 (10:00→21:52)
--- NOTE | 2020-03-17 11:00 | Progress Note ---
Assessment and Plan ESRD on HD Hyperkalemia Back pain weakness hypotension s/p HD yesterday, HD today will assess dialysis needs daily no indication for SHANIA will check phos daily Midodrine 5 mg TID renally dose meds strictg I&O daily weight Subjective Date of service: 03/17/20 Principal diagnosis: Non-specific troponin Interval history: HD today. Objective - Exam Narrative Exam: General appearance: well-developed, well-nourished EENT: ATNC, PERRL Neck: Present: neck supple Respiratory: Clear to Ascultation Heart: irregular Gastrointestinal: Present: normoactive bowel sounds. Absent: tenderness, distended Integumentary: no rash, warm and dry Neurologic: no focal deficit, no asterixis, alert and oriented x3 Musculoskeletal: Present: other (trace pitting edema in BLE) Psychiatric: mood/affect appropriate, cooperative - Vital Signs Vital signs: Vital Signs - 12hr 03/17/20 03/17/20 03/17/20 07:56 09:15 09:30 Temperature 98.5 F 97.3 F L Pulse Rate 77 90 98 H Respiratory 20 18 Rate Blood Pressure 111/53 90/54 90/55 O2 Sat by Pulse 94 Oximetry O2 Sat by Pulse 99 Oximetry [ Bilateral Throughout] 03/17/20 03/17/20 03/17/20 09:45 10:00 10:15 Temperature Pulse Rate 103 H 103 H 104 H Respiratory Rate Blood Pressure 96/54 91/57 86/56 O2 Sat by Pulse Oximetry O2 Sat by Pulse Oximetry [ Bilateral Throughout] 03/17/20 03/17/20 10:30 10:45 Temperature Pulse Rate 102 H 103 H Respiratory Rate Blood Pressure 99/62 102/57 O2 Sat by Pulse Oximetry O2 Sat by Pulse Oximetry [ Bilateral Throughout] - Lab 03/17/20 05:09 03/17/20 05:09 Most recent lab results Calcium 9.2 mg/dL (8.4-10.2) 03/17/20 05:09 Calcium 9.4 mg/dL (8.4-10.2) 03/17/20 05:09 Phosphorus 7.10 mg/dL (2.5-4.5) H 03/17/20 05:09 Magnesium 2.60 mg/dL (1.7-2.3) H 03/15/20 23:09 Medications & Allergies - Medications Allergies/Adverse Reactions: Allergies Penicillins Allergy (Verified 03/04/20 00:58) Hives Home Medications: Home Medications Medication Instructions Recorded Confirmed Last Taken Type Xanax TAB 0.5 mg PO BID PRN 03/04/20 03/04/20 Unknown History Midodrine 5 mg PO TID #30 03/17/20 Unknown Rx Renvela 1 tab PO TIDAC #30 03/17/20 Unknown Rx traMADoL [Ultram] 50 mg PO Q6HR PRN #14 tablet 03/17/20 Unknown Rx Active Medications: Generic Name Dose Route Start Last Admin Trade Name Freq PRN Reason Stop Dose Admin Acetaminophen 650 mg 03/16/20 00:47 Tylenol PO Q4H PRN Headache Dextrose 50 gm 03/15/20 22:45 03/15/20 23:27 D50w (25gm) Vial IV 50 gm Q30MIN PRN Administration Hypoglycemia Protocol Heparin Sodium (Porcine) 5,000 unit 03/16/20 00:45 03/16/20 16:15 Heparin SUB-Q Not Given Q12HR [facility] Sodium Chloride 100 mls @ 999 mls/hr 03/16/20 07:49 Nacl 0.9% IV REID PRN Hypotension Midodrine 5 mg 03/16/20 12:00 03/17/20 08:55 Proamatine PO Not Given TID@0800,1200,1600 [facility] Morphine Sulfate 2 mg 03/16/20 00:46 03/17/20 04:33 Morphine IV 2 mg Q3H PRN Administration Pain, Moderate (4-6) Ondansetron HCl 4 mg 03/16/20 00:44 03/17/20 04:35 Zofran IV 4 mg Q8H PRN Administration Nausea And Vomiting
[2020-03-17] MEDS: MIDODRINE 5 MG TAB PO SCH (17:16)
[2020-03-18 06:08] LABS: Hemoglobin 11.3 gm/dl (10.1-14.3); Mean Corpuscular HGB Conc 32 % (30-34); Mean Corpuscular Volume 88 fl (79-97); Red Blood Count 3.99 M/mm3 (3.65-5.03); Red Cell Distribution Width 16.4 % (13.2-15.2)
[2020-03-18 06:13] LABS: Platelet Count 60 K/mm3 (140-440)
[2020-03-18 06:33] LABS: Calcium 9.5 mg/dL (8.4-10.2)
[2020-03-18 07:04] LABS: Anisocytosis Few; Basophils % (Manual) 0 % (0.0-1.8); Total Cells Counted 100
[2020-03-18 07:05] LABS: Ovalocytes Few; Platelet Estimate Consistent w Auto; Target Cells Few
[2020-03-18] MEDS: MIDODRINE 5 MG TAB PO SCH ×2 (08:18→12:03)
[2020-03-18] MEDS: MORPHINE 2 MG/1 ML INJ IV PRN ×2 (08:18→12:03)
[2020-03-18] MEDS: HEPARIN 5,000 UNIT/1 ML VIAL SUB-Q SCH ×2 (09:35→09:36)
--- NOTE | 2020-03-18 10:41 | Progress Note ---
Assessment and Plan Assessment and plan: Patient is a 60-year-old female with past medical history of atrial fibrillation, diabetes mellitus, hypertension, end-stage renal disease on HD who presented to the emergency room with complaint of weakness going on for a few days and associated with body aches. Patient says she missed 2 sessions of reid lysis because of weakness and also complains of low back pain, cough but no history of fever or chills and also there is no history of chest pain Non-specific troponin in the setting of ESRD Cath 10/2019 at [facility] showing normal coronaries Echo 10/2019 - EF 60%, severe RVE, NURYS, mild RVD, moderate MS, , AR, mod to sev TR review of outside records by cards showed, patient was considered for pallative care after being dememend not a candidate for surgery has had extensive cardiac work up was on midodrine 15mg PO TID FOR chronic hypotension but last filled in 01/14 shows 5mg tid patient is also on chronic opoiod therapy last filled 01/14 per our records Patient had extensive cardiac work-up at [facility] in Oct. She was also evaluated by CTS for her valvular heart disease and was deemed not a candidate for surgical intervention due to multiple co morbidities. No further cardiac inpatient work-up is needed Patient may follow-up with her primary manager transfer as outpatient Atrial fibrillation with RVR Hyperkalemia End-stage renal disease Chronic low back pain Prior history of GI bleed Dextrocardia Status post IVC filter Chronic hypotension on midodrine 50 mg p.o. 3 times daily Plan Discussed with manager transfer. Patient has had extensive cardiac work-up as noted below She states that she has chronic atrial fibrillation and is usually cared for by a manager transfer in [facility]. She states that in the past she was variously on Eliquis and warfarin, but both of these were discontinued due to "internal bleeding". In the past 6 months, she also describes a cardiac catheterization procedure, done at [facility], for which she received no coronary intervention or revascularization procedure. Otherwise, she has no clear details of the findings of the cardiac catheterization. Continue hyperkalemia management. DVT and GI prophylaxis Plan to discharge patient today. History Interval history: Patient seen and examined resting comfortably underwent dialysis today no new complaints. Hospitalist Physical - Physical exam Narrative exam: VITAL SIGNS: Reviewed. GENERAL: The patient appears normally developed, Vital signs as documented. HEAD: No signs of head trauma. EYES: Pupils are equal. Extraocular motions intact. EARS: Hearing grossly intact. MOUTH: Oropharynx is normal. NECK: No adenopathy, no JVD. CHEST: Chest with clear breath sounds bilaterally. No wheezes, rales, or rhonchi. CARDIAC: Regular rate and rhythm. S1 and S2, without murmurs, gallops, or rubs. VASCULAR: No Edema. Peripheral pulses normal and equal in all extremities. ABDOMEN: Soft, non tender and non distended. No rebound or guarding, and no masses palpated. Bowel Sounds normal. MUSCULOSKELETAL: Good range of motion of all major joints. Extremities without clubbing, cyanosis or edema. NEUROLOGIC EXAM: Alert and oriented x 3 No focal sensory or strength deficits. Speech normal. Follows commands. PSYCHIATRIC: Mood normal. SKIN: detial exam as documented in skin assessment - Constitutional Vitals: Temp Pulse Resp BP Pulse Ox 98.0 F 103 H 18 97/53 90 03/18/20 03:51 03/18/20 09:02 03/18/20 07:18 03/18/20 03:51 03/18/20 03:51 General appearance: Present: no acute distress, cachectic HEART Score - HEART Score Troponin: Troponin T < 0.010 ng/mL (0.00-0.029) 03/16/20 12:22 Results - Labs CBC & Chem 7: 03/18/20 05:47 03/18/20 05:47 Labs: Laboratory Last Values WBC 3.9 K/mm3 (4.5-11.0) L 03/18/20 05:47 RBC 3.99 M/mm3 (3.65-5.03) 03/18/20 05:47 Hgb 11.3 gm/dl (10.1-14.3) 03/18/20 05:47 Hct 35.0 % (30.3-42.9) 03/18/20 05:47 MCV 88 fl (79-97) 03/18/20 05:47 MCH 28 pg (28-32) 03/18/20 05:47 MCHC 32 % (30-34) 03/18/20 05:47 RDW 16.4 % (13.2-15.2) H 03/18/20 05:47 Plt Count 60 K/mm3 (140-440) L 03/18/20 05:47 Lymph % (Auto) 19.3 % (13.4-35.0) 03/17/20 05:09 Edwards % (Auto) Griddle Attendant 03/18/20 05:47 Eos % (Auto) 4.4 % (0.0-4.3) H 03/17/20 05:09 Baso % (Auto) 1.2 % (0.0-1.8) 03/17/20 05:09 Lymph # 0.8 K/mm3 (1.2-5.4) L 03/17/20 05:09 Edwards # 0.6 K/mm3 (0.0-0.8) 03/17/20 05:09 Eos # 0.2 K/mm3 (0.0-0.4) 03/17/20 05:09 Baso # 0.0 K/mm3 (0.0-0.1) 03/17/20 05:09 Add Manual Diff Complete 03/18/20 05:47 Total Counted 100 03/18/20 05:47 Seg Neutrophils % 60.1 % (40.0-70.0) 03/17/20 05:09 Seg Neuts % (Manual) 70.0 % (40.0-70.0) 03/18/20 05:47 Band Neutrophils % 0 % 03/18/20 05:47 Lymphocytes % (Manual) 20.0 % (13.4-35.0) 03/18/20 05:47 Reactive Lymphs % (Man) 0 % 03/18/20 05:47 Monocytes % (Manual) 4.0 % (0.0-7.3) 03/18/20 05:47 Eosinophils % (Manual) 6.0 % (0.0-4.3) H 03/18/20 05:47 Basophils % (Manual) 0 % (0.0-1.8) 03/18/20 05:47 Metamyelocytes % 0 % 03/18/20 05:47 Myelocytes % 0 % 03/18/20 05:47 Promyelocytes % 0 % 03/18/20 05:47 Blast Cells % 0 % 03/18/20 05:47 Nucleated RBC % Not Reportable 03/18/20 05:47 Seg Neutrophils # 2.4 K/mm3 (1.8-7.7) 03/17/20 05:09 Seg Neutrophils # Man 2.7 K/mm3 (1.8-7.7) 03/18/20 05:47 Band Neutrophils # 0.0 K/mm3 03/18/20 05:47 Lymphocytes # (Manual) 0.8 K/mm3 (1.2-5.4) L 03/18/20 05:47 Abs React Lymphs (Man) 0.0 K/mm3 03/18/20 05:47 Monocytes # (Manual) 0.2 K/mm3 (0.0-0.8) 03/18/20 05:47 Eosinophils # (Manual) 0.2 K/mm3 (0.0-0.4) 03/18/20 05:47 Basophils # (Manual) 0.0 K/mm3 (0.0-0.1) 03/18/20 05:47 Metamyelocytes # 0.0 K/mm3 03/18/20 05:47 Myelocytes # 0.0 K/mm3 03/18/20 05:47 Promyelocytes # 0.0 K/mm3 03/18/20 05:47 Blast Cells # 0.0 K/mm3 03/18/20 05:47 WBC Morphology Not Reportable 03/18/20 05:47 Hypersegmented Neuts Not Reportable 03/18/20 05:47 Hyposegmented Neuts Not Reportable 03/18/20 05:47 Hypogranular Neuts Not Reportable 03/18/20 05:47 Smudge Cells Not Reportable 03/18/20 05:47 Toxic Granulation Not Reportable 03/18/20 05:47 Toxic Vacuolation Not Reportable 03/18/20 05:47 Dohle Bodies Not Reportable 03/18/20 05:47 Pelger-Huet Anomaly Not Reportable 03/18/20 05:47 Hong Rods Not Reportable 03/18/20 05:47 Platelet Estimate Consistent w auto 03/18/20 05:47 Clumped Platelets Not Reportable 03/18/20 05:47 Plt Clumps, EDTA Not Reportable 03/18/20 05:47 Large Platelets Not Reportable 03/18/20 05:47 Giant Platelets Not Reportable 03/18/20 05:47 Platelet Satelliting Not Reportable 03/18/20 05:47 Plt Morphology Comment Not Reportable 03/18/20 05:47 RBC Morphology Not Reportable 03/18/20 05:47 Dimorphic RBCs Not Reportable 03/18/20 05:47 Polychromasia Not Reportable 03/18/20 05:47 Hypochromasia Not Reportable 03/18/20 05:47 Poikilocytosis Not Reportable 03/18/20 05:47 Anisocytosis Few 03/18/20 05:47 Microcytosis Few 03/18/20 05:47 Macrocytosis Not Reportable 03/18/20 05:47 Spherocytes Not Reportable 03/18/20 05:47 Pappenheimer Bodies Not Reportable 03/18/20 05:47 Sickle Cells Not Reportable 03/18/20 05:47 Target Cells Few 03/18/20 05:47 Tear Drop Cells Not Reportable 03/18/20 05:47 Ovalocytes Few 03/18/20 05:47 Helmet Cells Not Reportable 03/18/20 05:47 Pichardo-[place] Bodies Not Reportable 03/18/20 05:47 [place] Rings Not Reportable 03/18/20 05:47 Kathya Cells Not Reportable 03/18/20 05:47 Bite Cells Not Reportable 03/18/20 05:47 Crenated Cell Not Reportable 03/18/20 05:47 Elliptocytes Not Reportable 03/18/20 05:47 Acanthocytes (Spur) Not Reportable 03/18/20 05:47 Rouleaux Not Reportable 03/18/20 05:47 Hemoglobin C Crystals Not Reportable 03/18/20 05:47 Schistocytes Not Reportable 03/18/20 05:47 Malaria parasites Not Reportable 03/18/20 05:47 Jonnathan Bodies Not Reportable 03/18/20 05:47 Hem Pathologist Commnt No 03/18/20 05:47 PT 17.2 Sec. (12.2-14.9) H 03/15/20 23:09 INR 1.39 (0.87-1.13) H 03/15/20 23:09 Sodium 143 mmol/L (137-145) 03/18/20 05:47 Potassium 4.6 mmol/L (3.6-5.0) 03/18/20 05:47 Chloride 101.7 mmol/L (98-107) 03/18/20 05:47 Carbon Dioxide 26 mmol/L (22-30) 03/18/20 05:47 Anion Gap 20 mmol/L 03/18/20 05:47 BUN 38 mg/dL (7-17) H 03/18/20 05:47 Creatinine 6.6 mg/dL (0.7-1.2) H 03/18/20 05:47 Estimated GFR 8 ml/min 03/18/20 05:47 BUN/Creatinine Ratio 6 % 03/18/20 05:47 Glucose 75 mg/dL (65-100) 03/18/20 05:47 Calcium 9.5 mg/dL (8.4-10.2) 03/18/20 05:47 Phosphorus 6.10 mg/dL (2.5-4.5) H 03/18/20 05:47 Magnesium 2.60 mg/dL (1.7-2.3) H 03/15/20 23:09 Total Creatine Kinase 500 units/L (30-135) H 03/16/20 12:22 CK-MB (CK-2) 4.8 ng/mL (0.0-4.0) H 03/16/20 12:22 CK-MB (CK-2) Rel Index 0.9 (0-4) 03/16/20 12:22 Troponin T < 0.010 ng/mL (0.00-0.029) 03/16/20 12:22 Triglycerides 88 mg/dL (2-149) 03/15/20 23:09 Cholesterol 87 mg/dL (50-199) 03/15/20 23:09 LDL Cholesterol Direct 35 mg/dL (50-130) L 03/15/20 23:09 HDL Cholesterol 36 mg/dL (40-59) L 03/15/20 23:09 Cholesterol/HDL Ratio 2.41 % 03/15/20 23:09 Chapman/IV: Voiding Method Incontinent IV Catheter Type [Right Wrist] INT / Saline Lock IV Catheter Type [Left Forearm GRAFT ] Active Medications - Current Medications Current Medications: Generic Name Dose Route Start Last Admin Trade Name Freq PRN Reason Stop Dose Admin Acetaminophen 650 mg 03/16/20 00:47 Tylenol PO Q4H PRN Headache Dextrose 50 gm 03/15/20 22:45 03/15/20 23:27 D50w (25gm) Vial IV 50 gm Q30MIN PRN Administration Hypoglycemia Protocol Heparin Sodium (Porcine) 5,000 unit 03/16/20 00:45 03/18/20 09:36 Heparin SUB-Q 5,000 unit Q12HR SUDEEP Administration Sodium Chloride 100 mls @ 999 mls/hr 03/16/20 07:49 Nacl 0.9% IV REID PRN Hypotension Midodrine 5 mg 03/17/20 16:00 03/18/20 08:18 Proamatine PO 5 mg TID@0800,1200,1600 SUDEEP Administration Morphine Sulfate 2 mg 03/16/20 00:46 03/18/20 08:18 Morphine IV 2 mg Q3H PRN Administration Pain, Moderate (4-6) Ondansetron HCl 4 mg 03/16/20 00:44 03/17/20 04:35 Zofran IV 4 mg Q8H PRN Administration Nausea And Vomiting
--- NOTE | 2020-03-18 10:46 | Progress Note ---
Assessment and Plan Assessment and plan: Patient is a 60-year-old female with past medical history of atrial fibrillation, diabetes mellitus, hypertension, end-stage renal disease on HD who presented to the emergency room with complaint of weakness going on for a few days and associated with body aches. Patient says she missed 2 sessions of reid lysis because of weakness and also complains of low back pain, cough but no history of fever or chills and also there is no history of chest pain Non-specific troponin in the setting of ESRD Cath 10/2019 at [facility] showing normal coronaries Echo 10/2019 - EF 60%, severe RVE, NURYS, mild RVD, moderate MS, , AR, mod to sev TR review of outside records by cards showed, patient was considered for pallative care after being dememend not a candidate for surgery has had extensive cardiac work up was on midodrine 15mg PO TID FOR chronic hypotension but last filled in 01/14 shows 5mg tid patient is also on chronic opoiod therapy last filled 01/14 per our records Patient had extensive cardiac work-up at [facility] in Oct. She was also evaluated by CTS for her valvular heart disease and was deemed not a candidate for surgical intervention due to multiple co morbidities. No further cardiac inpatient work-up is needed Patient may follow-up with her primary director targeted marketing as outpatient Atrial fibrillation with RVR Hyperkalemia End-stage renal disease Chronic low back pain Prior history of GI bleed Dextrocardia Status post IVC filter Chronic hypotension on midodrine 50 mg p.o. 3 times daily Plan Discussed with director targeted marketing. Patient has had extensive cardiac work-up as noted below She states that she has chronic atrial fibrillation and is usually cared for by a director targeted marketing in [facility]. She states that in the past she was variously on Eliquis and warfarin, but both of these were discontinued due to "internal bleeding". In the past 6 months, she also describes a cardiac catheterization procedure, done at [facility], for which she received no coronary intervention or revascularization procedure. Otherwise, she has no clear details of the findings of the cardiac catheterization. Continue hyperkalemia management. DVT and GI prophylaxis Plan to discharge patient today. History Interval history: Patient seen and examined resting comfortably underwent dialysis today no new complaints. Hospitalist Physical - Physical exam Narrative exam: VITAL SIGNS: Reviewed. GENERAL: The patient appears normally developed, Vital signs as documented. HEAD: No signs of head trauma. EYES: Pupils are equal. Extraocular motions intact. EARS: Hearing grossly intact. MOUTH: Oropharynx is normal. NECK: No adenopathy, no JVD. CHEST: Chest with clear breath sounds bilaterally. No wheezes, rales, or rhonchi. CARDIAC: Regular rate and rhythm. S1 and S2, without murmurs, gallops, or rubs. VASCULAR: No Edema. Peripheral pulses normal and equal in all extremities. ABDOMEN: Soft, non tender and non distended. No rebound or guarding, and no masses palpated. Bowel Sounds normal. MUSCULOSKELETAL: Good range of motion of all major joints. Extremities without clubbing, cyanosis or edema. NEUROLOGIC EXAM: Alert and oriented x 3 No focal sensory or strength deficits. Speech normal. Follows commands. PSYCHIATRIC: Mood normal. SKIN: detial exam as documented in skin assessment - Constitutional Vitals: Temp Pulse Resp BP Pulse Ox 98.0 F 103 H 18 97/53 90 03/18/20 03:51 03/18/20 09:02 03/18/20 07:18 03/18/20 03:51 03/18/20 03:51 General appearance: Present: no acute distress, cachectic HEART Score - HEART Score Troponin: Troponin T < 0.010 ng/mL (0.00-0.029) 03/16/20 12:22 Results - Labs CBC & Chem 7: 03/18/20 05:47 03/18/20 05:47 Labs: Laboratory Last Values WBC 3.9 K/mm3 (4.5-11.0) L 03/18/20 05:47 RBC 3.99 M/mm3 (3.65-5.03) 03/18/20 05:47 Hgb 11.3 gm/dl (10.1-14.3) 03/18/20 05:47 Hct 35.0 % (30.3-42.9) 03/18/20 05:47 MCV 88 fl (79-97) 03/18/20 05:47 MCH 28 pg (28-32) 03/18/20 05:47 MCHC 32 % (30-34) 03/18/20 05:47 RDW 16.4 % (13.2-15.2) H 03/18/20 05:47 Plt Count 60 K/mm3 (140-440) L 03/18/20 05:47 Lymph % (Auto) 19.3 % (13.4-35.0) 03/17/20 05:09 [place] % (Auto) Flood Control Engineer 03/18/20 05:47 Eos % (Auto) 4.4 % (0.0-4.3) H 03/17/20 05:09 Baso % (Auto) 1.2 % (0.0-1.8) 03/17/20 05:09 Lymph # 0.8 K/mm3 (1.2-5.4) L 03/17/20 05:09 [place] # 0.6 K/mm3 (0.0-0.8) 03/17/20 05:09 Eos # 0.2 K/mm3 (0.0-0.4) 03/17/20 05:09 Baso # 0.0 K/mm3 (0.0-0.1) 03/17/20 05:09 Add Manual Diff Complete 03/18/20 05:47 Total Counted 100 03/18/20 05:47 Seg Neutrophils % 60.1 % (40.0-70.0) 03/17/20 05:09 Seg Neuts % (Manual) 70.0 % (40.0-70.0) 03/18/20 05:47 Band Neutrophils % 0 % 03/18/20 05:47 Lymphocytes % (Manual) 20.0 % (13.4-35.0) 03/18/20 05:47 Reactive Lymphs % (Man) 0 % 03/18/20 05:47 Monocytes % (Manual) 4.0 % (0.0-7.3) 03/18/20 05:47 Eosinophils % (Manual) 6.0 % (0.0-4.3) H 03/18/20 05:47 Basophils % (Manual) 0 % (0.0-1.8) 03/18/20 05:47 Metamyelocytes % 0 % 03/18/20 05:47 Myelocytes % 0 % 03/18/20 05:47 Promyelocytes % 0 % 03/18/20 05:47 Blast Cells % 0 % 03/18/20 05:47 Nucleated RBC % Not Reportable 03/18/20 05:47 Seg Neutrophils # 2.4 K/mm3 (1.8-7.7) 03/17/20 05:09 Seg Neutrophils # Man 2.7 K/mm3 (1.8-7.7) 03/18/20 05:47 Band Neutrophils # 0.0 K/mm3 03/18/20 05:47 Lymphocytes # (Manual) 0.8 K/mm3 (1.2-5.4) L 03/18/20 05:47 Abs React Lymphs (Man) 0.0 K/mm3 03/18/20 05:47 Monocytes # (Manual) 0.2 K/mm3 (0.0-0.8) 03/18/20 05:47 Eosinophils # (Manual) 0.2 K/mm3 (0.0-0.4) 03/18/20 05:47 Basophils # (Manual) 0.0 K/mm3 (0.0-0.1) 03/18/20 05:47 Metamyelocytes # 0.0 K/mm3 03/18/20 05:47 Myelocytes # 0.0 K/mm3 03/18/20 05:47 Promyelocytes # 0.0 K/mm3 03/18/20 05:47 Blast Cells # 0.0 K/mm3 03/18/20 05:47 WBC Morphology Not Reportable 03/18/20 05:47 Hypersegmented Neuts Not Reportable 03/18/20 05:47 Hyposegmented Neuts Not Reportable 03/18/20 05:47 Hypogranular Neuts Not Reportable 03/18/20 05:47 Smudge Cells Not Reportable 03/18/20 05:47 Toxic Granulation Not Reportable 03/18/20 05:47 Toxic Vacuolation Not Reportable 03/18/20 05:47 Dohle Bodies Not Reportable 03/18/20 05:47 Pelger-Huet Anomaly Not Reportable 03/18/20 05:47 Hong Rods Not Reportable 03/18/20 05:47 Platelet Estimate Consistent w auto 03/18/20 05:47 Clumped Platelets Not Reportable 03/18/20 05:47 Plt Clumps, EDTA Not Reportable 03/18/20 05:47 Large Platelets Not Reportable 03/18/20 05:47 Giant Platelets Not Reportable 03/18/20 05:47 Platelet Satelliting Not Reportable 03/18/20 05:47 Plt Morphology Comment Not Reportable 03/18/20 05:47 RBC Morphology Not Reportable 03/18/20 05:47 Dimorphic RBCs Not Reportable 03/18/20 05:47 Polychromasia Not Reportable 03/18/20 05:47 Hypochromasia Not Reportable 03/18/20 05:47 Poikilocytosis Not Reportable 03/18/20 05:47 Anisocytosis Few 03/18/20 05:47 Microcytosis Few 03/18/20 05:47 Macrocytosis Not Reportable 03/18/20 05:47 Spherocytes Not Reportable 03/18/20 05:47 Pappenheimer Bodies Not Reportable 03/18/20 05:47 Sickle Cells Not Reportable 03/18/20 05:47 Target Cells Few 03/18/20 05:47 Tear Drop Cells Not Reportable 03/18/20 05:47 Ovalocytes Few 03/18/20 05:47 Helmet Cells Not Reportable 03/18/20 05:47 Pichardo-[place] Bodies Not Reportable 03/18/20 05:47 [place] Rings Not Reportable 03/18/20 05:47 Kathya Cells Not Reportable 03/18/20 05:47 Bite Cells Not Reportable 03/18/20 05:47 Crenated Cell Not Reportable 03/18/20 05:47 Elliptocytes Not Reportable 03/18/20 05:47 Acanthocytes (Spur) Not Reportable 03/18/20 05:47 Rouleaux Not Reportable 03/18/20 05:47 Hemoglobin C Crystals Not Reportable 03/18/20 05:47 Schistocytes Not Reportable 03/18/20 05:47 Malaria parasites Not Reportable 03/18/20 05:47 Jonnathan Bodies Not Reportable 03/18/20 05:47 Hem Pathologist Commnt No 03/18/20 05:47 PT 17.2 Sec. (12.2-14.9) H 03/15/20 23:09 INR 1.39 (0.87-1.13) H 03/15/20 23:09 Sodium 143 mmol/L (137-145) 03/18/20 05:47 Potassium 4.6 mmol/L (3.6-5.0) 03/18/20 05:47 Chloride 101.7 mmol/L (98-107) 03/18/20 05:47 Carbon Dioxide 26 mmol/L (22-30) 03/18/20 05:47 Anion Gap 20 mmol/L 03/18/20 05:47 BUN 38 mg/dL (7-17) H 03/18/20 05:47 Creatinine 6.6 mg/dL (0.7-1.2) H 03/18/20 05:47 Estimated GFR 8 ml/min 03/18/20 05:47 BUN/Creatinine Ratio 6 % 03/18/20 05:47 Glucose 75 mg/dL (65-100) 03/18/20 05:47 Calcium 9.5 mg/dL (8.4-10.2) 03/18/20 05:47 Phosphorus 6.10 mg/dL (2.5-4.5) H 03/18/20 05:47 Magnesium 2.60 mg/dL (1.7-2.3) H 03/15/20 23:09 Total Creatine Kinase 500 units/L (30-135) H 03/16/20 12:22 CK-MB (CK-2) 4.8 ng/mL (0.0-4.0) H 03/16/20 12:22 CK-MB (CK-2) Rel Index 0.9 (0-4) 03/16/20 12:22 Troponin T < 0.010 ng/mL (0.00-0.029) 03/16/20 12:22 Triglycerides 88 mg/dL (2-149) 03/15/20 23:09 Cholesterol 87 mg/dL (50-199) 03/15/20 23:09 LDL Cholesterol Direct 35 mg/dL (50-130) L 03/15/20 23:09 HDL Cholesterol 36 mg/dL (40-59) L 03/15/20 23:09 Cholesterol/HDL Ratio 2.41 % 03/15/20 23:09 Chapman/IV: Voiding Method Incontinent IV Catheter Type [Right Wrist] INT / Saline Lock IV Catheter Type [Left Forearm GRAFT ] Active Medications - Current Medications Current Medications: Generic Name Dose Route Start Last Admin Trade Name Freq PRN Reason Stop Dose Admin Acetaminophen 650 mg 03/16/20 00:47 Tylenol PO Q4H PRN Headache Dextrose 50 gm 03/15/20 22:45 03/15/20 23:27 D50w (25gm) Vial IV 50 gm Q30MIN PRN Administration Hypoglycemia Protocol Heparin Sodium (Porcine) 5,000 unit 03/16/20 00:45 03/18/20 09:36 Heparin SUB-Q 5,000 unit Q12HR SUDEEP Administration Sodium Chloride 100 mls @ 999 mls/hr 03/16/20 07:49 Nacl 0.9% IV REID PRN Hypotension Midodrine 5 mg 03/17/20 16:00 03/18/20 08:18 Proamatine PO 5 mg TID@0800,1200,1600 SUDEEP Administration Morphine Sulfate 2 mg 03/16/20 00:46 03/18/20 08:18 Morphine IV 2 mg Q3H PRN Administration Pain, Moderate (4-6) Ondansetron HCl 4 mg 03/16/20 00:44 03/17/20 04:35 Zofran IV 4 mg Q8H PRN Administration Nausea And Vomiting
[2020-03-18 10:52] VITALS: BP 110/38
--- NOTE | 2020-03-18 11:00 | Progress Note ---
Assessment and Plan ESRD on HD Hyperkalemia Back pain weakness hypotension s/p HD yesterday, no HD today will assess dialysis needs daily no indication for SHANIA will check phos daily Midodrine 5 mg TID renally dose meds strictg I&O daily weight Subjective Date of service: 03/18/20 Principal diagnosis: Non-specific troponin Interval history: s/p HD yesterday. Objective - Exam Narrative Exam: General appearance: well-developed, well-nourished EENT: ATNC, PERRL Neck: Present: neck supple Respiratory: Clear to Ascultation Heart: irregular Gastrointestinal: Present: normoactive bowel sounds. Absent: tenderness, distended Integumentary: no rash, warm and dry Neurologic: no focal deficit, no asterixis, alert and oriented x3 Musculoskeletal: Present: other (trace pitting edema in BLE) Psychiatric: mood/affect appropriate, cooperative - Vital Signs Vital signs: Vital Signs - 12hr 03/18/20 03/18/20 03/18/20 00:47 03:51 07:18 Temperature 98 F 98.0 F Pulse Rate 68 105 H Pulse Rate [ 103 H From Monitor] Pulse Rate [ 103 H Left Radial] Pulse Rate [ 103 H Right Radial] Respiratory 20 18 Rate Blood Pressure 97/53 Blood Pressure 110/68 [Right] O2 Sat by Pulse 90 Oximetry 03/18/20 03/18/20 08:07 09:02 Temperature 97.6 F Pulse Rate 103 H Pulse Rate [ From Monitor] Pulse Rate [ Left Radial] Pulse Rate [ Right Radial] Respiratory 18 Rate Blood Pressure 110/38 Blood Pressure [Right] O2 Sat by Pulse Oximetry - Lab 03/18/20 05:47 03/18/20 05:47 Most recent lab results Calcium 9.5 mg/dL (8.4-10.2) 03/18/20 05:47 Phosphorus 6.10 mg/dL (2.5-4.5) H 03/18/20 05:47 Magnesium 2.60 mg/dL (1.7-2.3) H 03/15/20 23:09 Medications & Allergies - Medications Allergies/Adverse Reactions: Allergies Penicillins Allergy (Verified 03/04/20 00:58) Hives Home Medications: Home Medications Medication Instructions Recorded Confirmed Last Taken Type Xanax TAB 0.5 mg PO BID PRN 03/04/20 03/04/20 Unknown History Midodrine 5 mg PO TID #30 03/17/20 Unknown Rx Renvela 1 tab PO TIDAC #30 03/17/20 Unknown Rx traMADoL [Ultram] 50 mg PO Q6HR PRN #14 tablet 03/17/20 Unknown Rx Active Medications: Generic Name Dose Route Start Last Admin Trade Name Freq PRN Reason Stop Dose Admin Acetaminophen 650 mg 03/16/20 00:47 Tylenol PO Q4H PRN Headache Dextrose 50 gm 03/15/20 22:45 03/15/20 23:27 D50w (25gm) Vial IV 50 gm Q30MIN PRN Administration Hypoglycemia Protocol Heparin Sodium (Porcine) 5,000 unit 03/16/20 00:45 03/18/20 09:36 Heparin SUB-Q 5,000 unit Q12HR SUDEEP Administration Sodium Chloride 100 mls @ 999 mls/hr 03/16/20 07:49 Nacl 0.9% IV REID PRN Hypotension Midodrine 5 mg 03/17/20 16:00 03/18/20 08:18 Proamatine PO 5 mg TID@0800,1200,1600 SUDEEP Administration Morphine Sulfate 2 mg 03/16/20 00:46 03/18/20 08:18 Morphine IV 2 mg Q3H PRN Administration Pain, Moderate (4-6) Ondansetron HCl 4 mg 03/16/20 00:44 03/17/20 04:35 Zofran IV 4 mg Q8H PRN Administration Nausea And Vomiting
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
== END 2020-03-18 17:19 | disposition home or self-care (01) ==
LOC: ED 21:08 → 3A 23:55 → 4A 03-16 13:05
PROVIDERS: ADMIT Internal Medicine; ATTEND Internal Medicine
DX: I12.0 Hypertensive chronic kidney disease with stage 5 chronic kidney disease or end stage renal disease (principal); E11.22 Type 2 diabetes mellitus with diabetic chronic kidney disease; N18.6 End stage renal disease; I48.21 Permanent atrial fibrillation; I95.89 Other hypotension; R79.89 Other specified abnormal findings of blood chemistry; E87.5 Hyperkalemia; G89.29 Other chronic pain; M54.5 Low back pain; Q24.0 Dextrocardia; Z87.19 Personal history of other diseases of the digestive system; Z91.15 Patient's noncompliance with renal dialysis; Z90.49 Acquired absence of other specified parts of digestive tract; Z99.2 Dependence on renal dialysis; Z79.01 Long term (current) use of anticoagulants; Z79.899 Other long term (current) drug therapy; Z88.0 Allergy status to penicillin
CPT/HCPCS: 36415; 70450; 71045; 72100; 72125; 72170; 80048; 80061; 82550; 82553; 83735; 84100; 84484; 85007; 85025; 85027; 85610; 93005; 94644; 96372; 96374; 96375; 96376; 99291; G0257; G0378; J0610; J1644; J2270; J2405; J7050; J1815